=== PATIENT | female | born 2000 | race Caucasian/White ===

== ENCOUNTER 2022-02-21 02:36 | Emergency (ER) | payer OTHER, SELFPAY ==
[2022-02-21 02:41] VITALS: BP 127/89; PULSE 103; RESP 16; TEMP 36.5; O2SAT 100
--- NOTE | 2022-02-21 02:56 | ED.GENADULT ---
HPI - General Adult General Chief complaint: Extremity Injury, Upper Stated complaint: left arm laceration Time Seen by Provider: 02/21/22 02:38 History of Present Illness HPI narrative: 22-year-old female presenting to the emergency department for evaluation of a laceration to her left forearm. Patient states she fell and landed on a glass table causing a laceration to her left arm. Patient reports her tetanus is up-to-date. Patient denies any associated numbness or weakness. Patient states this was an accident and not an intent for self-harm. Patient has a normal affect and is otherwise well-appearing. Related Data Allergies Allergy/AdvReac Type Severity Reaction Status Date / Time No Known Allergies Allergy Verified 02/21/22 02:37 Review of Systems Review of Systems: CONSTITUTIONAL: Denies fever, chills, or sweats. EYES: Denies visual changes, redness, or discharge. ENT: Denies rhinorrhea, congestion, sore throat, or otalgia. CARDIOVASCULAR: Denies chest pain, palpitations, or edema. RESPIRATORY: Denies cough or dyspnea. GASTROINTESTINAL: Denies abdominal pain, nausea, vomiting, or diarrhea. GENITOURINARY: Denies dysuria or hematuria. SKIN: See HPI MUSCULOSKELETAL: Denies back pain, joint pain, or myalgia. NEUROLOGIC: Denies headache, numbness, or weakness. Exam Narrative: APPEARANCE: Well appearing, no pain, no distress, well-nourished. HEAD: normocephalic, atraumatic. EYES: PERRLA/EOMI, conjunctivae clear. NOSE: Normal no drainage NECK: Supple. No adenopathy, no masses. RESPIRATORY: Airway patent, respirations nonlabored. Clear to auscultation bilaterally, no rales, rhonchi, wheezing. CARDIOVASCULAR: Regular rate and rhythm without murmurs rubs or gallops. ABDOMINAL: Soft, nontender, nondistended, normal bowel sounds MUSCULOSKELETAL: Moves all extremities. Strength/ROM intact, No edema, No calf tenderness. NEURO: Alert. Cranial nerves II through XII intact. Good gait. Good coordination SKIN: Laceration to left forearm to the depth of adipose tissue. No vascular, muscular or tendon involvement Course Course Emergency Course: Laceration was repaired as described in the procedure note. Patient tolerated the procedure well. Patient's tetanus was up-to-date. Patient was updated on the plan for wound care and follow-up with her primary care physician. Vital Signs Vital signs: Vital Signs Temperature 97.7 F 02/21/22 02:41 Pulse Rate 103 H 02/21/22 02:41 Respiratory Rate 16 02/21/22 02:41 Blood Pressure 127/89 02/21/22 02:41 Pulse Oximetry 100 02/21/22 02:41 Oxygen Delivery Room Air 02/21/22 02:41 Temperature 97.7 F 02/21/22 02:41 Pulse Rate 95 02/21/22 05:16 Respiratory Rate 16 02/21/22 05:16 Blood Pressure 124/79 02/21/22 05:16 Pulse Oximetry 100 02/21/22 05:16 Oxygen Delivery Room Air 02/21/22 02:41 Procedures Laceration Laceration 1: Time: 04:23 Side (If applicable): left Size (cm): 5 Description: linear Depth: simple, single layer Local Anesthetic: lidocaine 1% Amount of anesthesia used (mL): 4 Pre-repair: wound explored and irrigated ====== Skin Level ====== Skin layer closed with: nylon Size (cm): 4-0 Number of sutures: 7 Technique: simple, interrupted ====== Subcutaneous Layer ====== ====== Muscle Layer ====== ====== Tendon Layer ====== Medical Decision Making Vital Signs Vital Signs: Vital Signs Temperature 97.7 F 02/21/22 02:41 Pulse Rate 103 H 02/21/22 02:41 Respiratory Rate 16 02/21/22 02:41 Blood Pressure 127/89 02/21/22 02:41 Pulse Oximetry 100 02/21/22 02:41 Oxygen Delivery Room Air 02/21/22 02:41 Temperature 97.7 F 02/21/22 02:41 Pulse Rate 95 02/21/22 05:16 Respiratory Rate 16 02/21/22 05:16 Blood Pressure 124/79 02/21/22 05:16 Pulse Oximetry 100 02/21/22 05:16 Oxygen Delivery Room Air 02/21/22 02
[2022-02-21] MEDS: LIDOCAINE HCL 1% PF 30 ML VIAL 5 ML INFILTRATE (03:15)
[2022-02-21 05:16] VITALS: BP 124/79; PULSE 95; RESP 16; O2SAT 100
== END 2022-02-21 05:05 | disposition home or self-care (01) ==
PROVIDERS: Emergency Provider Emergency Medicine
DX: S51.812A Laceration without foreign body of left forearm, initial encounter (principal); W01.110A Fall on same level from slipping, tripping and stumbling with subsequent striking against sharp glass, initial encounter
CPT/HCPCS: 12002; 99282